=== PATIENT | female | born 1965 | race Caucasian/White ===

== ENCOUNTER 2018-08-14 16:09 | Emergency (ER) | payer OTHER ==
[~2018-08-14] VITALS: Ht 154.9 cm; Wt 77.3 kg
[~2018-08-14 16:09] MED LIST: DSS100 PO; FERR-89 PO; HYDR-3965 PO; HYDR12.530 PO
[2018-08-14 17:00] VITALS: BP 148/96
== END 2018-08-14 22:15 | disposition left against medical advice (07) ==
LOC: EMS 16:10
DX: M54.2 Cervicalgia (principal); H53.8 Other visual disturbances; Z53.21 Procedure and treatment not carried out due to patient leaving prior to being seen by health care provider